=== PATIENT | female | born 1990 | race American Indian/Alaskan Native ===

== ENCOUNTER 2017-04-11 17:49 | Emergency (ER) | payer SELFPAY ==
[2017-04-11 19:07] LABS: Hemoglobin 7.5 gm/dl (10.1-14.3); Mean Corpuscular Volume 68 fl (79-97); Red Blood Count 3.66 M/mm3 (3.65-5.03); White Blood Count 11.5 K/mm3 (4.5-11.0)
[2017-04-11 19:09] LABS: Mean Corpuscular HGB Conc 30 % (30-34); Mean Corpuscular Hemoglobin 20 pg (28-32)
[2017-04-11 19:10] LABS: Platelet Count 425 K/mm3 (140-440)
[2017-04-11 19:41] LABS: Basophils % (Manual) 0 % (0.0-1.8); Blastocytes % (Manual) 0 %
[2017-04-11 19:42] LABS: Anisocytosis 2+; Hypochromasia 2+; Microcytosis 1+
[2017-04-11 19:43] LABS: Elliptocytes Few; Target Cells Few
[2017-04-11 19:44] LABS: Diff Status Complete
[2017-04-11 20:11] LABS: Bacteria,Urine 2+ /HPF (Negative); Bilirubin,Urine NEG (Negative); Blood,Urine MOD (Negative); Ketones,Urine NEG (Negative); Leukocyte Esterase,Urine SM (Negative); Mucus,Urine FEW /HPF; Nitrite,Urine NEG (Negative); Protein,Urine <15 mg/dL mg/dL (Negative); Urobilinogen,Urine < 2.0 mg/dL (<2.0)
--- NOTE | 2017-04-11 22:07 | Emergency Department Report ---
HPI - General Chief Complaint: Vaginal Bleeding Time Seen by Provider: 04/11/17 21:47 - HPI HPI: Room 17 The pt is a 27 y/o F p/w a CC of Vaginal bleeding. The pt states she began having light vaginal bleeding 2 weeks ago. The pt states the bleeding soon increased and she is going through ~ 3-4 ppd. Pt also c/o pelvic cramping. Pt denies previous episodes of abnl vag bleeding. Pt gives her pain a score of 4-5/ 10. ED Past Medical Hx - Past Medical History Previous Medical History?: No - Surgical History Past Surgical History?: Yes Additional Surgical History: LEF /FOOT/ C SECTION - Family History Family history: no significant - Social History Smoking Status: Current Every Day Smoker (1/2 ppd) Substance Use Type: None (denies illicit drug use), Alcohol (occ) - Medications Home Medications: Home Medications Medication Instructions Recorded Confirmed Last Taken Type Docusate Sodium [Colace] 100 mg PO BID PRN #60 capsule 04/11/17 Unknown Rx Ferrous Sulfate [Feosol 325 MG tab] 325 mg PO TID #90 tablet 04/11/17 Unknown Rx medroxyPROGESTERone ACETATE 10 mg PO QDAY #10 tablet 04/11/17 Unknown Rx [Provera] Ibuprofen [Motrin 800 MG tab] 800 mg PO Q8HR PRN #20 tablet 04/12/17 Unknown Rx traMADol [Ultram] 50 mg PO Q6HR PRN #14 tablet 04/12/17 Unknown Rx ED Review of Systems ROS: Stated complaint: LOWER ABD PAIN/CRAMPS/VAG BLEEDING Other details as noted in HPI Comment: All other systems reviewed and negative Constitutional: denies: chills, fever Eyes: denies: eye pain, eye discharge, vision change ENT: denies: ear pain, throat pain Respiratory: denies: cough, shortness of breath, wheezing Cardiovascular: denies: chest pain, palpitations Endocrine: no symptoms reported Gastrointestinal: abdominal pain Genitourinary: abnormal menses Musculoskeletal: denies: back pain, joint swelling, arthralgia Skin: denies: rash, lesions Neurological: denies: headache, weakness, paresthesias Psychiatric: denies: anxiety, depression Hematological/Lymphatic: denies: easy bleeding, easy bruising Physical Exam - Physical Exam Vital Signs: Vital Signs 04/11/17 04/11/17 18:36 19:48 Temperature 98.4 F Pulse Rate 90 89 Respiratory 18 16 Rate Blood Pressure 146/96 144/84 O2 Sat by Pulse 100 Oximetry Physical Exam: GEN: WD, WN F lying on stretcher not appearing to be in acute distress. HEENT: normocephalic, atraumatic PULM: CTA B CV: rrr, no m/r/g ABD: s, with diffuse discomfort to palpation. Neuro: GCS 15 Ext: no deformity Pelvic: small amt of blood in the vault. ED Course Vital Signs 04/11/17 04/11/17 18:36 19:48 Temperature 98.4 F Pulse Rate 90 89 Respiratory 18 16 Rate Blood Pressure 146/96 144/84 O2 Sat by Pulse 100 Oximetry ED Medical Decision Making - Lab Data Result diagrams: 04/11/17 18:44 Laboratory Tests 04/11/17 04/11/17 04/11/17 18:44 18:44 18:50 WBC 11.5 H RBC 3.66 Hgb 7.5 L Hct 25.0 L MCV 68 L MCH 20 L MCHC 30 RDW 26.0 H Plt Count 425 Add Manual Diff Complete Total Counted 100 Seg Neuts % (Manual) 85.0 H Band Neutrophils % 0 Lymphocytes % (Manual) 12.0 L Reactive Lymphs % (Man) 0 Monocytes % (Manual) 2.0 Eosinophils % (Manual) 1.0 Basophils % (Manual) 0 Metamyelocytes % 0 Myelocytes % 0 Promyelocytes % 0 Blast Cells % 0 Nucleated RBC % Not Reportable Seg Neutrophils # Man 9.8 H Band Neutrophils # 0.0 Lymphocytes # (Manual) 1.4 Abs React Lymphs (Man) 0.0 Monocytes # (Manual) 0.2 Eosinophils # (Manual) 0.1 Basophils # (Manual) 0.0 Metamyelocytes # 0.0 Myelocytes # 0.0 Promyelocytes # 0.0 Blast Cells # 0.0 WBC Morphology Not Reportable Hypersegmented Neuts Not Reportable Hyposegmented Neuts Not Reportable Hypogranular Neuts Not Reportable Smudge Cells Not Reportable Toxic Granulation Not Reportable Toxic Vacuolation Not Reportable Dohle Bodies Not Reportable Pelger-Huet Anomaly Not Reportable Larissa Rods Not Reportable Platelet Estimate Appears normal Clumped Platelets Not Reportable Plt Clumps, EDTA Not Reportable Large Platelets Not Reportable Giant Platelets Not Reportable Platelet Satelliting Not Reportable Plt Morphology Comment Not Reportable RBC Morphology Not Reportable Dimorphic RBCs Not Reportable Polychromasia Not Reportable Hypochromasia 2+ Poikilocytosis Not Reportable Anisocytosis 2+ Microcytosis 1+ Macrocytosis Not Reportable Spherocytes Not Reportable Pappenheimer Bodies Not Reportable Sickle Cells Not Reportable Target Cells Few Tear Drop Cells Not Reportable Ovalocytes Not Reportable Helmet Cells Not Reportable [place] Bodies Not Reportable [place] Rings Not Reportable Yadira Cells Not Reportable Bite Cells Not Reportable Crenated Cell Not Reportable Elliptocytes Few Acanthocytes (Spur) Not Reportable Rouleaux Not Reportable Hemoglobin C Crystals Not Reportable Schistocytes Not Reportable Malaria parasites Not Reportable [place] Bodies Not Reportable Hem Pathologist Commnt No HCG, Quant < 2 Urine Color Urine Turbidity Urine pH Ur Specific [place] Urine Protein Urine Glucose (UA) Urine Ketones Urine Blood Urine Nitrite Urine Bilirubin Urine Urobilinogen Ur Leukocyte Esterase Urine WBC (Auto) Urine RBC (Auto) U Epithel Cells (Auto) Urine Bacteria (Auto) Urine Mucus Blood Type O POSITIVE Antibody Screen Negative 04/11/17 19:31 WBC RBC Hgb Hct MCV MCH MCHC RDW Plt Count Add Manual Diff Total Counted Seg Neuts % (Manual) Band Neutrophils % Lymphocytes % (Manual) Reactive Lymphs % (Man) Monocytes % (Manual) Eosinophils % (Manual) Basophils % (Manual) Metamyelocytes % Myelocytes % Promyelocytes % Blast Cells % Nucleated RBC % Seg Neutrophils # Man Band Neutrophils # Lymphocytes # (Manual) Abs React Lymphs (Man) Monocytes # (Manual) Eosinophils # (Manual) Basophils # (Manual) Metamyelocytes # Myelocytes # Promyelocytes # Blast Cells # WBC Morphology Hypersegmented Neuts Hyposegmented Neuts Hypogranular Neuts Smudge Cells Toxic Granulation Toxic Vacuolation Dohle Bodies Pelger-Huet Anomaly Larissa Rods Platelet Estimate Clumped Platelets Plt Clumps, EDTA Large Platelets Giant Platelets Platelet Satelliting Plt Morphology Comment RBC Morphology Dimorphic RBCs Polychromasia Hypochromasia Poikilocytosis Anisocytosis Microcytosis Macrocytosis Spherocytes Pappenheimer Bodies Sickle Cells Target Cells Tear Drop Cells Ovalocytes Helmet Cells [place] Bodies [place] Rings [place] Cells Bite Cells Crenated Cell Elliptocytes Acanthocytes (Spur) Rouleaux Hemoglobin C Crystals Schistocytes Malaria parasites Waldemar Bodies Hem Pathologist Commnt HCG, Quant Urine Color Straw Urine Turbidity Clear Urine pH 6.0 Ur Specific [place] 1.004 Urine Protein <15 mg/dl Urine Glucose (UA) Neg Urine Ketones Neg Urine Blood Mod Urine Nitrite Neg Urine Bilirubin Neg Urine Urobilinogen < 2.0 Ur Leukocyte Esterase Sm Urine WBC (Auto) 3.0 Urine RBC (Auto) 3.0 U Epithel Cells (Auto) 1.0 Urine Bacteria (Auto) 2+ Urine Mucus Few Blood Type Antibody Screen - Radiology Data Radiology results: report reviewed (pelvic u/s), image reviewed (pelvic u/s) pelvic u/s- IUD in uterus. - Differential Diagnosis menorrhagia, ectopic , uterine fibroids Critical care attestation.: If time is entered above; I have spent that time in minutes in the direct care of this critically ill patient, excluding procedure time. ED Disposition Clinical Impression: Menorrhagia, Pelvic cramping Disposition: TO HOME OR SELFCARE Is pt being admited?: No Does the pt Need Aspirin: No Condition: Stable Instructions: Menorrhagia (ED) Prescriptions: Docusate Sodium [Colace] 100 mg PO BID PRN #60 capsule PRN Reason: Constipation Ferrous Sulfate [Feosol 325 MG tab] 325 mg PO TID #90 tablet Ibuprofen [Motrin 800 MG tab] 800 mg PO Q8HR PRN #20 tablet PRN Reason: Pain medroxyPROGESTERone ACETATE [Provera] 10 mg PO QDAY #10 tablet traMADol [Ultram] 50 mg PO Q6HR PRN #14 tablet PRN Reason: Pain Referrals: PRIMARY CARE, [Primary Care Provider] - 3-5 Days SOSA GARCIA MD [Staff Physician] - 3-5 Days Time of Disposition: 00:36
[2017-04-11 22:09] VITALS: BP 137/74
[2017-04-11] MEDS ORDERED: NORCO 5/325 PO ONE (22:27)
--- NOTE | 2017-04-12 00:20 | Ultrasound Report ---
FINAL REPORT PROCEDURE: US TRANSVAGINAL TECHNIQUE: Real-time transabdominal sonography in multiple planes of the pelvis was performed. The pelvic structures, especially the ovaries were not optimally visualized. Transvaginal sonography was then performed to better evaluate the structures and/or abnormalities described below with image documentation. CPT 02282 and 93871 HISTORY: [email or web address] COMPARISON: No prior studies are available for comparison. FINDINGS: UTERUS Size: 9.3 x 3.3 x 5.5 cm. Endometrial thickness: There is an intrauterine device identified. The endometrial thickness is 8 millimeters. Orientation: anteverted. Cervix: Normal. Fibroids/masses: None. RIGHT Ovary: 3.8 x 2.2 x 2.9 cm. Appearance: Normal. LEFT Ovary: 3.2 x 1.5 x 2.4 cm. Appearance: Normal. Pelvic fluid: Minimal fluid in the lower pelvis.. Other: None. IMPRESSION: An intrauterine device is identified in the uterus. The endometrial pattern is normal measuring 8 millimeters. Both ovaries have normal size and appearance.
--- NOTE | 2017-04-12 00:21 | Ultrasound Report ---
FINAL REPORT PROCEDURE: Ultrasound of the female pelvis, transabdominal and transvaginal imaging. TECHNIQUE: Real-time transabdominal sonography in multiple planes of the pelvis was performed. The pelvic structures, especially the ovaries were not optimally visualized. Transvaginal sonography was then performed to better evaluate the structures and/or abnormalities described below with image documentation. CPT 96348 and 46414 HISTORY: [email or web address] COMPARISON: No prior studies are available for comparison. FINDINGS: UTERUS Size: 9.3 x 3.3 x 5.5 cm. Endometrial thickness: There is an intrauterine device identified. The endometrial thickness is 8 millimeters. Orientation: anteverted. Cervix: Normal. Fibroids/masses: None. RIGHT Ovary: 3.8 x 2.2 x 2.9 cm. Appearance: Normal. LEFT Ovary: 3.2 x 1.5 x 2.4 cm. Appearance: Normal. Pelvic fluid: Minimal fluid in the lower pelvis.. Other: None. IMPRESSION: An intrauterine device is identified in the uterus. The endometrial pattern is normal measuring 8 millimeters. Both ovaries have normal size and appearance.
== END 2017-04-12 00:45 | disposition home or self-care (01) ==
LOC: ED 17:49
DX: N92.0 Excessive and frequent menstruation with regular cycle (principal); R10.2 Pelvic and perineal pain; F17.210 Nicotine dependence, cigarettes, uncomplicated
CPT/HCPCS: 36415; 76830; 76856; 81001; 84702; 85007; 85025; 86850; 86900; 86901; 99284